=== PATIENT | male | born 1955 | race Caucasian/White ===

== ENCOUNTER 2018-03-20 17:49 | Emergency (ER) | payer BC ==
[2018-03-20] MEDS ORDERED: Fluorescein Sod TOPICAL 0.6* 0.6 MG TEST OPHTHALMIC ONE (18:10)
[2018-03-20] MEDS ORDERED: Tetracaine 0.5% OPTH.SOL 4 ML* 1 DROP BTL BOTH EYES ONE (18:10)
--- NOTE | 2018-03-20 18:12 | UC ---
Eye Complaint HPI - HPI Summary HPI Summary: 62 yo male presents with left eye cloudiness. He tells me that about 5 days ago he noticed a "string-like thing" when he looks forward. If he looks to the right , this "object" will move to the LEFT. If he looks to the left, this "object" will move to the RIGHT. He admits he has a hx of cataracts. Denies pain, vision loss, dizziness, or headaches. Does wear glasses, but never contacts. Did not injure his eye or get anything into his eye. - History of Current Complaint Hx Obtained From: Patient Onset/Duration: Sudden Onset Timing: Constant Severity Currently: None <Xiang Anderson - Last Filed: 03/20/18 18:41> <Rick Sanchez - Last Filed: 03/22/18 14:41> - History of Current Complaint Stated Complaint: EYE COMPLAINT Time Seen by Provider: 03/20/18 18:10 - Allergies/Home Medications Allergies/Adverse Reactions: Allergies Allergy/AdvReac Type Severity Reaction Status Date / Time No Known Allergies Allergy Verified 03/20/18 18:15 PMH/Surg Hx/FS Hx/Imm Hx - Additional Past Medical History Additional PMH: None Previously Healthy: Yes - Surgical History Surgical History: Yes Surgery Procedure, Year, and Place: COLONOSCOPY- 2 AND 7 YEARS AGO. APPENDECTOMY A CHILD - Family History Known Family History: Positive: None - Social History Occupation: Employed Full-time Lives: With Family Alcohol Use: Weekly Alcohol Amount: 2 PER WEEK Substance Use Type: None <Xiang Anderson - Last Filed: 03/20/18 18:41> Review of Systems Constitutional: Negative Skin: Negative Eyes: Other - "String-like thing" left eye ENT: Negative Respiratory: Negative Cardiovascular: Negative Neurovascular: Negative Neurological: Negative Psychological: Negative All Other Systems Reviewed And Are Negative: Yes <Xiang Anderson - Last Filed: 03/20/18 18:41> Physical Exam - Summary Physical Exam Summary: GENERAL: NAD. WDWN. No pain distress. SKIN: No rashes, sores, lesions, or open wounds. HEENT: Head: AT/NC Eyes: EOM intact. PERRLA. Conjunctiva clear without inflammation or discharge. Fluorescein dye exam left eye: No uptake. No FB or abrasion. No mirna sign. Ears: Hearing grossly normal. TMs intact, no bulging, erythema, or edema. Nose: Nasal mucosa pink and moist. NTTP maxillary and frontal sinus. NECK: Supple. Nontender. No lymphadenopathy. CHEST: No accessory muscle use. Breathing comfortably and in no distress. CV: RRR. Pulses intact. Brisk cap refill. NEURO: Alert. CN II-XII grossly intact Triage Information Reviewed: Yes Vital Signs: Vital Signs: Temp Pulse Resp BP Pulse Ox 98.8 F 66 18 150/96 97 03/20/18 18:09 03/20/18 18:09 03/20/18 18:09 03/20/18 18:09 03/20/18 18:09 <Xiang Anderson - Last Filed: 03/20/18 18:41> Vital Signs: Initial Vital Signs Temp 98.8 F 03/20/18 18:09 Pulse 66 03/20/18 18:09 Resp 18 03/20/18 18:09 BP 150/96 03/20/18 18:09 Pulse Ox 97 03/20/18 18:09 <Rick Sanchez - Last Filed: 03/22/18 14:41> Eye Complaint Course/Dx - Course Course Of Treatment: Suspect eye floaters vs worsening cataract. I will refer him to ophthalmology for further eval. - Differential Dx/Diagnosis Provider Diagnoses: Left eye floaters <Xiang Anderson - Last Filed: 03/20/18 18:41> Discharge - Sign-Out/Discharge Documenting (check all that apply): Discharge/Admit/Transfer - Billing Disposition and Condition Condition: STABLE Disposition: Home <Xiang Anderson - Last Filed: 03/20/18 18:41> - Billing Disposition and Condition Condition: STABLE Disposition: Home <Rick Sanchez - Last Filed: 03/22/18 14:41> - Discharge Plan Condition: Stable Disposition: HOME Patient Education Materials: Cataracts (ED), Visual Floaters (ED) Referrals: No Primary Care Phys,NOPCP [Primary Care Provider] - Mynor Frances MD [Medical Doctor] - As Soon As Possible Additional Instructions: If you develop a fever, shortness of breath, chest pain, new or worsening symptoms - please call your PCP or go to the ED. Your blood pressure was high at todays visit. Please see your primary provider within 4 weeks for recheck and re-evaluation. 1) Please schedule an appointment with Dr. Frances for further evaluation and treatment Per institutional requirements, I have reviewed the chart, however, I was not consulted specifically or made aware of this patient by the above midlevel provider. I did not personally evaluate, interact with , or disposition this patient.
[2018-03-20 18:15] VITALS: BP 150/96
== END 2018-03-20 18:30 | disposition home or self-care (01) ==
LOC: UCEAST 17:49
DX: H43.392 Other vitreous opacities, left eye (principal)
CPT/HCPCS: 99201; A9270-GY; G0463

== ENCOUNTER 2019-02-10 11:19 | Emergency (ER) | payer BC ==
[2019-02-10 11:38] VITALS: BP 157/92
--- NOTE | 2019-02-10 12:24 | UC ---
Ear Complaint HPI - HPI Summary HPI Summary: started yesterday with dry cough and L ear pain. pain occurs with cough - History of Current Complaint Chief Complaint: UCEar Stated Complaint: EAR PAIN COUGH FEVER Time Seen by Provider: 02/10/19 12:09 Hx Obtained From: Patient Onset/Duration: Gradual Onset Severity Initially: Mild Severity Currently: Moderate Pain Intensity: 6 Associated Signs/Symptoms: Positive: Hearing Loss - "foggy feeling". Negative: Discharge - Allergies/Home Medications Allergies/Adverse Reactions: Allergies Allergy/AdvReac Type Severity Reaction Status Date / Time No Known Allergies Allergy Verified 02/10/19 11:37 Home Medications: Home Medications Ibuprofen [Advil] 200 mg PO ONCE PRN 02/10/19 [History Confirmed 02/10/19] Phenylephrine HCl [Sinus PE Decongestant] 1 tab PO ONCE PRN 02/10/19 [History Confirmed 02/10/19] PMH/Surg Hx/FS Hx/Imm Hx Previously Healthy: Yes - Surgical History Surgical History: Yes Surgery Procedure, Year, and Place: COLONOSCOPY- 2 AND 7 YEARS AGO. APPENDECTOMY A CHILD - Family History Known Family History: Positive: None - Social History Occupation: Employed Full-time Lives: With Family Alcohol Use: Occasionally Alcohol Amount: 2 PER WEEK Substance Use Type: None Smoking Status (MU): Never Smoked Tobacco Review of Systems All Other Systems Reviewed And Are Negative: Yes Constitutional: Positive: Negative Skin: Positive: Negative. Negative: Rash Eyes: Positive: Negative ENT: Positive: Other - L ear pain. Negative: Sore Throat, Sinus Congestion Respiratory: Positive: Cough - very dry Cardiovascular: Positive: Negative Neurological: Positive: Negative Physical Exam Triage Information Reviewed: Yes Appearance: Well-Appearing, No Pain Distress, Well-Nourished Vital Signs: Initial Vital Signs Temp 98.5 F 02/10/19 11:33 Pulse 85 02/10/19 11:33 Resp 18 02/10/19 11:33 BP 157/92 02/10/19 11:33 Pulse Ox 98 02/10/19 11:33 Vital Signs Reviewed: Yes Eyes: Positive: Conjunctiva Clear ENT: Positive: Pharynx normal, Nasal congestion, TM dull. Negative: TM red, Sinus tenderness Respiratory Exam: Normal Respiratory: Positive: Lungs clear Cardiovascular Exam: Normal Cardiovascular: Positive: RRR Neurological Exam: Normal Psychological Exam: Normal Skin Exam: Normal Skin: Negative: Rashes Ear Complaint Course/Dx - Differential Dx/Diagnosis Differential Diagnosis/HQI/PQRI: Cerumen Impaction, Foreign Body, Otitis Externa , Otitis Media, URI Provider Diagnosis: Upper respiratory infection Discharge - Sign-Out/Discharge Documenting (check all that apply): Patient Departure All imaging exams completed and their final reports reviewed: No Studies - Discharge Plan Condition: Good Disposition: HOME Patient Education Materials: Upper Respiratory Infection (ED) Referrals: Ryan Austin MD [Primary Care Provider] - 2 Days (if no better) Additional Instructions: drink plenty of fluids and rest use sudafed (from behind the counter) and Robitussin DM as directed - Billing Disposition and Condition Condition: GOOD Disposition: Home
== END 2019-02-10 12:33 | disposition home or self-care (01) ==
LOC: UCEAST 11:19
DX: J06.9 Acute upper respiratory infection, unspecified (principal)
CPT/HCPCS: 99211; G0463